=== PATIENT | male | born 1985 | race Caucasian/White ===

== ENCOUNTER → 2023-08-08 | Outpatient (CLI) | payer BC ==
[2023-08-08 14:31] LABS: BASO # 0.1 10^3/uL (0.0-0.2); BASO % 0.7 % (0.0-1.0); EOS # 0.2 10^3/uL (0.0-0.5); EOS % 2.2 % (0.0-3.0); HEMATOCRIT 42.9 % (42.0-52.0); HEMOGLOBIN 15.1 g/dl (13.5-17.5); LYMPH # 2.1 10^3/uL (1.5-5.0); LYMPH % 24.2 % (24.0-44.0); MEAN CORPUSCULAR HEMOGLOBIN 31.9 pg (27.0-33.0); MEAN CORPUSCULAR HGB CONC 35.2 g/dl (32.0-36.5); MEAN CORPUSCULAR VOLUME 90.7 fl (80.0-96.0); NEUTROPHILS # 5.2 10^3/uL (1.5-8.5); NEUTROPHILS % 60.7 % (36.0-66.0); PLATELET COUNT, AUTOMATED 198 10^3/uL (150-450); RED BLOOD COUNT 4.73 10^6/uL (4.30-6.10); WHITE BLOOD COUNT 8.6 10^3/uL (4.0-10.0)
[2023-08-08 14:50] LABS: ERYTHROCYTE SEDIMENTATION RATE 17 mm/hr (0-15)
[2023-08-08 14:57] LABS: URIC ACID 7.8 MG/DL (3.7-9.2)
[2023-08-08 15:00] LABS: ALBUMIN 3.8 G/DL (3.2-5.2); ALKALINE PHOSPHATASE 57 U/L (46-116); ALT/SGPT 21 U/L (7.0-40); AST/SGOT 19 U/L (<34); BILIRUBIN,TOTAL 0.6 MG/DL (0.3-1.2); BLOOD UREA NITROGEN 18 MG/DL (9-23); CALCIUM LEVEL 8.9 MG/DL (8.5-10.1); CARBON DIOXIDE LEVEL 26 MMOL/L (20-31); CHLORIDE LEVEL 106 MMOL/L (98-107); CREATININE FOR GFR 0.83 MG/DL (0.70-1.30); GLOMERULAR FILTRATION RATE > 60.0 (>60); GLUCOSE, FASTING 63 MG/DL (60-100); POTASSIUM SERUM 4.4 MMOL/L (3.5-5.1); SODIUM LEVEL 141 MMOL/L (136-145); TOTAL PROTEIN 7.3 G/DL (5.7-8.2)
[2023-08-08 15:02] LABS: RHEUMATOID FACTOR QUANT < 3.5 IU/ML (<14)
[2023-08-10 17:11] LABS: ANTI DOUBLE STRAND-DNA AB 1 IU/mL (0-9); ANTINUCLEAR ANTIBODIES DIRECT Positive (Negative); RNP ANTIBODIES 1.3 AI (0.0-0.9); SJOGREN'S ANTI SS-A <0.2 AI (0.0-0.9); SJOGREN'S ANTI SS-B <0.2 AI (0.0-0.9); SMITH ANTIBODIES <0.2 AI (0.0-0.9)
== END ==
LOC: M PLALAB 11:57
PROVIDERS: ATTEND Student in an Organized Health Care Education/Training Program
DX: M79.671 Pain in right foot (principal)

== ENCOUNTER → 2023-11-08 | Outpatient (REF) | payer BC ==
[2023-11-09 11:08] LABS: TESTOSTERONE FREE (DIRECT) 8.2 pg/mL (6.8-21.5)
== END ==
LOC: M LAB REF 12:46
PROVIDERS: ATTEND Internal Medicine
DX: R68.82 Decreased libido (principal)

== ENCOUNTER 2024-02-05 13:47 | Emergency (ER) | payer BC ==
[~2024-02-05] VITALS: Ht 180.3 cm; Wt 112.1 kg
[2024-02-05] MEDS ORDERED: BACTDSTA (13:56)
[2024-02-05] MEDS ORDERED: AMPH1CAP16 (13:56)
[2024-02-05] MEDS ORDERED: MUPI2OI (13:56)
[2024-02-05] MEDS ORDERED: VALA500T5 (13:56)
[2024-02-05] MEDS ORDERED: TEST200I14 (13:56)
[2024-02-05] MEDS ORDERED: VANCOMYCIN HCL 1,000 MG, VIAL MATE ADAPTER 1 EACH in NS 250 ML IV SCH ×2 (14:55)
[2024-02-05] MEDS: NS 1,000 ML IV ONE (15:06)
[2024-02-05] MEDS: VANCOMYCIN HCL 1,000 MG, VIAL MATE ADAPTER 1 EACH in D5W 250 ML IV ONE ×2 (15:20→16:25)
[2024-02-05 15:22] LABS: BASO # 0.1 10^3/uL (0.0-0.2); BASO % 0.5 % (0.0-1.0); EOS # 0.5 10^3/uL (0.0-0.5); EOS % 5.1 % (0.0-3.0); HEMATOCRIT 44.4 % (42.0-52.0); HEMOGLOBIN 15.7 g/dl (13.5-17.5); LYMPH # 1.9 10^3/uL (1.5-5.0); LYMPH % 20.8 % (24.0-44.0); MEAN CORPUSCULAR HEMOGLOBIN 32.8 pg (27.0-33.0); MEAN CORPUSCULAR HGB CONC 35.4 g/dl (32.0-36.5); MEAN CORPUSCULAR VOLUME 92.9 fl (80.0-96.0); MONO # 1.3 10^3/uL (0.0-0.8); MONO % 13.6 % (2.0-8.0); NEUTROPHILS # 5.5 10^3/uL (1.5-8.5); NEUTROPHILS % 59.7 % (36.0-66.0); PLATELET COUNT, AUTOMATED 200 10^3/uL (150-450); RED BLOOD COUNT 4.78 10^6/uL (4.30-6.10); WHITE BLOOD COUNT 9.3 10^3/uL (4.0-10.0)
[2024-02-05 15:39] LABS: ALBUMIN 3.4 G/DL (3.2-5.2); ALKALINE PHOSPHATASE 54 U/L (46-116); ALT/SGPT 39 U/L (7.0-40); AST/SGOT 40 U/L (<34); BILIRUBIN,TOTAL 0.6 MG/DL (0.3-1.2); BLOOD UREA NITROGEN 18 MG/DL (9-23); CALCIUM LEVEL 8.9 MG/DL (8.5-10.1); CARBON DIOXIDE LEVEL 24 MMOL/L (20-31); CHLORIDE LEVEL 105 MMOL/L (98-107); CREATININE FOR GFR 0.98 MG/DL (0.70-1.30); GLOMERULAR FILTRATION RATE > 60.0 (>60); GLUCOSE, FASTING 98 MG/DL (60-100); POTASSIUM SERUM 4.2 MMOL/L (3.5-5.1); SODIUM LEVEL 137 MMOL/L (136-145); TOTAL PROTEIN 7.1 G/DL (5.7-8.2)
[2024-02-05] MEDS: IBUPROFEN 800 MG TAB PO ONE (15:59)
[2024-02-05] MEDS ORDERED: AMOX875T PO (17:19)
[2024-02-05] MEDS ORDERED: DOXY100C3 PO (17:19)
[2024-02-05 17:40] VITALS: BP 148/87; TEMP 97.4; O2SAT 99
== END 2024-02-05 17:42 | disposition home or self-care (01) ==
LOC: M ED 13:47
DX: L03.113 Cellulitis of right upper limb (principal); Z79.2 Long term (current) use of antibiotics; Z79.899 Other long term (current) drug therapy
CPT/HCPCS: 80053; 83605; 85025; 87040; 87641; 96365; 96366; 99284; J3370

== ENCOUNTER 2024-03-08 17:47 | Emergency (ER) | payer BC ==
[~2024-03-08] VITALS: Ht 180.3 cm; Wt 116.1 kg
[~2024-03-08 17:47] MED LIST: AMOX875T PO; AMPH1CAP16; BACTDSTA; DOXY100C3 PO; MUPI2OI; TEST200I14; VALA500T5
[2024-03-08 19:31] LABS: BASO # 0.1 10^3/uL (0.0-0.2); BASO % 0.6 % (0.0-1.0); EOS # 0.4 10^3/uL (0.0-0.5); EOS % 4.4 % (0.0-3.0); HEMATOCRIT 39.9 % (42.0-52.0); HEMOGLOBIN 13.7 g/dl (13.5-17.5); LYMPH # 1.6 10^3/uL (1.5-5.0); LYMPH % 19.4 % (24.0-44.0); MEAN CORPUSCULAR HEMOGLOBIN 32.6 pg (27.0-33.0); MEAN CORPUSCULAR HGB CONC 34.3 g/dl (32.0-36.5); MONO # 1.2 10^3/uL (0.0-0.8); MONO % 14.9 % (2.0-8.0); NEUTROPHILS # 4.9 10^3/uL (1.5-8.5); NEUTROPHILS % 60.3 % (36.0-66.0); PLATELET COUNT, AUTOMATED 169 10^3/uL (150-450); WHITE BLOOD COUNT 8.1 10^3/uL (4.0-10.0)
[2024-03-08 19:51] LABS: ERYTHROCYTE SEDIMENTATION RATE 21 mm/hr (0-15)
[2024-03-08] MEDS ORDERED: DOXY-440 PO (20:13)
[2024-03-08] MEDS: cefTRIAXone SOD 1GM VIAL IM ONE (20:13)
[2024-03-08] MEDS: LIDOCAINE 1% SDV 5ML VIAL DILUENT ONE (20:13)
[2024-03-08 20:27] VITALS: BP 127/58; TEMP 98; O2SAT 98
== END 2024-03-08 20:29 | disposition home or self-care (01) ==
LOC: M ED 17:47
DX: L03.114 Cellulitis of left upper limb (principal); F19.20 Other psychoactive substance dependence, uncomplicated; F17.200 Nicotine dependence, unspecified, uncomplicated; Z79.2 Long term (current) use of antibiotics; Z79.899 Other long term (current) drug therapy
CPT/HCPCS: 80047; 83605; 85025; 85652; 86140; 87040; 96372; 99283; J0696

== ENCOUNTER 2024-03-13 18:18 | Day surgery (SDC) | payer BC ==
[~2024-03-13] VITALS: Ht 180.3 cm; Wt 116.1 kg
[~2024-03-13 18:18] MED LIST changes: -AMPH1CAP16; +AMPH1CAP16 PO; +DOXY-440 PO; -TEST200I14; +TEST200I14 INJ
[2024-03-13] MEDS ORDERED: VALA1TAB5 PO (18:25)
[2024-03-13 18:52] LABS: BASO # 0.1 10^3/uL (0.0-0.2); BASO % 0.6 % (0.0-1.0); EOS # 0.3 10^3/uL (0.0-0.5); EOS % 2.4 % (0.0-3.0); HEMATOCRIT 49.9 % (42.0-52.0); HEMOGLOBIN 17.1 g/dl (13.5-17.5); LYMPH # 2.8 10^3/uL (1.5-5.0); LYMPH % 25.2 % (24.0-44.0); MEAN CORPUSCULAR HEMOGLOBIN 32.8 pg (27.0-33.0); MEAN CORPUSCULAR HGB CONC 34.3 g/dl (32.0-36.5); MEAN CORPUSCULAR VOLUME 95.8 fl (80.0-96.0); MONO # 1.2 10^3/uL (0.0-0.8); MONO % 10.9 % (2.0-8.0); NEUTROPHILS # 6.9 10^3/uL (1.5-8.5); NEUTROPHILS % 60.6 % (36.0-66.0); PLATELET COUNT, AUTOMATED 249 10^3/uL (150-450); RED BLOOD COUNT 5.21 10^6/uL (4.30-6.10); WHITE BLOOD COUNT 11.3 10^3/uL (4.0-10.0)
[2024-03-13] MEDS ORDERED: ISOVUE-370 76% 100ML VIAL As Ordered ONE (19:09)
[2024-03-13] MEDS: MORPHINE 4 MG/ML 1ML VIAL IV ONE (19:10)
[2024-03-13] MEDS: NS 1,000 ML IV ONE (19:10)
[2024-03-13 19:16] LABS: ALBUMIN 4.2 G/DL (3.2-5.2); BILIRUBIN,DIRECT 0.1 MG/DL (<0.4); BILIRUBIN,TOTAL 0.4 MG/DL (0.3-1.2); TOTAL PROTEIN 8.2 G/DL (5.7-8.2)
[2024-03-13] MEDS: HYDROMORPHONE HCL 0.5 MG/ 0.5 ML SYRINGE IV ONE (19:50)
[2024-03-13] MEDS ORDERED: ACETAMINOPHEN 1000MG 100ML IV BAG As Ordered ONE (20:51)
[2024-03-13] MEDS ORDERED: propofoL 200 MG/20 ML VIAL As Ordered ONE (20:51)
[2024-03-13] MEDS ORDERED: fentaNYL 250 MCG/5 ML INJECTION As Ordered ONE (20:51)
[2024-03-13] MEDS ORDERED: ROCURONIUM BROMIDE 50MG/5ML VIAL As Ordered ONE (20:51)
[2024-03-13] MEDS ORDERED: MIDAZOLAM INJ 2MG/2ML VIAL As Ordered ONE (20:51)
[2024-03-13] MEDS ORDERED: ONDANSETRON 4MG 2ML VIAL As Ordered ONE (20:51)
[2024-03-13] MEDS ORDERED: LIDOCAINE 2% 100MG/5ML SDV (FOR ANES.) As Ordered ONE (20:51)
[2024-03-13] MEDS ORDERED: KETOROLAC 60MG 2ML VIAL As Ordered ONE (20:51)
[2024-03-13] MEDS ORDERED: SUCCINYLCHOLINE 100MG/5ML SYRINGE As Ordered ONE (20:51)
[2024-03-13] MEDS ORDERED: SUGAMMADEX SODIUM 500 MG/5 ML VIAL (BRIDION) As Ordered ONE (20:54)
[2024-03-13] MEDS ORDERED: CYCL-707 PO (21:01)
[2024-03-13] MEDS ORDERED: DOXY-440 PO (21:01)
[2024-03-13] MEDS ORDERED: OMEP-173 PO (21:01)
[2024-03-13] MEDS ORDERED: TADA5TAB PO (21:01)
[2024-03-13] MEDS ORDERED: HOME MED LIST COMPLETE! XX SCH (21:05)
[2024-03-13] MEDS ORDERED: ceFAZolin 2 GM/D5W 50 ML IV BAG As Ordered ONE (21:41)
[2024-03-13] MEDS ORDERED: dexmedeTOMIDine (4MCG/ML)200MCG/50ML BTL (PRECEDEX) As Ordered ONE (21:48)
[2024-03-13] MEDS ORDERED: HYDROmorphone HCL 2MG/ML 1ML VIAL As Ordered ONE (22:56)
[2024-03-13] MEDS ORDERED: oxyCODONE 5MG TAB PO PRN (23:40)
[2024-03-13] MEDS ORDERED: LR 1,000 ML IV SCH (23:40)
[2024-03-13] MEDS ORDERED: fentaNYL 100 MCG/2 ML INJECTION IV PRN (23:40)
[2024-03-13] MEDS ORDERED: HYDROMORPHONE HCL 0.5 MG/ 0.5 ML SYRINGE IV PRN (23:40)
[2024-03-13] MEDS ORDERED: MEPERIDINE 25 MG/ML 1ML VIAL IV PRN (23:40)
[2024-03-13] MEDS ORDERED: ONDANSETRON 4MG 2ML VIAL IV PRN ×2 (23:40→23:45)
[2024-03-13] MEDS ORDERED: METOCLOPRAMIDE INJ 10MG/2ML VIAL IV PRN (23:40)
[2024-03-14] VITALS (8 sets, daily range): BP systolic 124–135; BP diastolic 72–92; TEMP 97.5–97.9; O2SAT 94–96
[2024-03-14] MEDS: NORCO, ANEXSIA 5/325MG TABLET (HYDROcodone/ACETAMINOPHEN) PO PRN (00:31)
[2024-03-14] MEDS: KETOROLAC 30 MG/ML 1ML VIAL IV PRN (05:13)
[2024-03-14 05:57] LABS: HEMATOCRIT 45.7 % (42.0-52.0); HEMOGLOBIN 15.9 g/dl (13.5-17.5); MEAN CORPUSCULAR HEMOGLOBIN 33.3 pg (27.0-33.0); MEAN CORPUSCULAR HGB CONC 34.8 g/dl (32.0-36.5); MEAN CORPUSCULAR VOLUME 95.8 fl (80.0-96.0); PLATELET COUNT, AUTOMATED 235 10^3/uL (150-450); RED BLOOD COUNT 4.77 10^6/uL (4.30-6.10); WHITE BLOOD COUNT 11.9 10^3/uL (4.0-10.0)
[2024-03-14 06:27] LABS: BLOOD UREA NITROGEN 19 MG/DL (9-23); CALCIUM LEVEL 9.2 MG/DL (8.5-10.1); CARBON DIOXIDE LEVEL 25 MMOL/L (20-31); CHLORIDE LEVEL 104 MMOL/L (98-107); CREATININE FOR GFR 0.68 MG/DL (0.70-1.30); GLOMERULAR FILTRATION RATE > 60.0 (>60); GLUCOSE, FASTING 115 MG/DL (60-100); POTASSIUM SERUM 5.3 MMOL/L (3.5-5.1); SODIUM LEVEL 137 MMOL/L (136-145)
[2024-03-14] MEDS: PANTOPRAZOLE 40MG TAB (PROTONIX) PO SCH (09:23)
[2024-03-14] MEDS: SENOKOT S TAB PO SCH (09:23)
[2024-03-14] MEDS ORDERED: HYDR-3715 PO (10:42)
== END 2024-03-14 11:27 | disposition home or self-care (01) ==
LOC: M ED 18:18 → M SDC 20:29 → M ED INP 23:43 → UNDOADMIN 23:43 → M MSPAV 03-14 00:15 → M ED INP 03-14 00:15 → M SDC 03-14 11:27 → UNDODISIN 03-14 11:27
PROVIDERS: ATTEND Surgery
DX: K43.0 Incisional hernia with obstruction, without gangrene (principal); K66.0 Peritoneal adhesions (postprocedural) (postinfection); R11.2 Nausea with vomiting, unspecified; F90.9 Attention-deficit hyperactivity disorder, unspecified type; K57.92 Diverticulitis of intestine, part unspecified, without perforation or abscess without bleeding; F99 Mental disorder, not otherwise specified; F15.10 Other stimulant abuse, uncomplicated; Z98.890 Other specified postprocedural states; Z90.49 Acquired absence of other specified parts of digestive tract; F17.200 Nicotine dependence, unspecified, uncomplicated; Z79.2 Long term (current) use of antibiotics
CPT/HCPCS: 36415; 49618; 74021; 74177; 80047; 80048; 80076; 83605; 83690; 85025; 85027; 87040; 93041; 96374; 96375; 99285; J0131; J0330; J0665; J0690; J1100; J1170; J1885; J2250; J2405; J3010; Q9967; S2900

== ENCOUNTER 2024-03-14 21:03 | Emergency (ER) | payer BC ==
[~2024-03-14] VITALS: Ht 180.3 cm; Wt 115.6 kg
[~2024-03-14 21:03] MED LIST changes: +CYCL-707 PO; +HYDR-3715 PO; +OMEP-173 PO; +TADA5TAB PO; +VALA1TAB5 PO
[2024-03-14 21:04] VITALS: BP 154/109; TEMP 98.6; O2SAT 99
== END 2024-03-14 21:52 | disposition left against medical advice (07) ==
LOC: M ED 21:03
DX: Z53.21 Procedure and treatment not carried out due to patient leaving prior to being seen by health care provider (principal)

== ENCOUNTER 2024-03-15 06:44 | Emergency (ER) | payer BC | END 2024-03-15 06:45 | disposition left against medical advice (07) | LOC: M ED 06:44 | DX: Z53.21 Procedure and treatment not carried out due to patient leaving prior to being seen by health care provider (principal) ==

== ENCOUNTER → 2024-03-22 | Outpatient (REF) | payer BC | LOC: M LAB REF 16:39 | PROVIDERS: ATTEND Nurse Practitioner Family | DX: K42.0 Umbilical hernia with obstruction, without gangrene (principal) ==

== ENCOUNTER → 2024-04-29 | Outpatient (REF) | payer BC | LOC: M LAB REF 12:43 | PROVIDERS: ATTEND Internal Medicine | DX: E29.1 Testicular hypofunction (principal) ==

== ENCOUNTER → 2024-09-12 | Outpatient (REF) | payer BC ==
[~2024-09-12] MED LIST changes: -TADA5TAB PO; +TADA5TAB94 PO
== END ==
LOC: M LAB REF 12:51
PROVIDERS: ATTEND Internal Medicine
DX: E29.1 Testicular hypofunction (principal)

== ENCOUNTER → 2024-09-13 | Outpatient (CLI) | payer BC, MEDICAID | LOC: M WUC 12:43 | PROVIDERS: ATTEND Internal Medicine | DX: M54.50 Low back pain, unspecified (principal); W19.XXXA Unspecified fall, initial encounter; Y93.9 Activity, unspecified; Y92.9 Unspecified place or not applicable ==

== ENCOUNTER 2024-11-16 17:03 | Emergency (ER) | payer BC, MEDICAID ==
[~2024-11-16] VITALS: Ht 180.3 cm; Wt 100.8 kg
[2024-11-16] MEDS: KETOROLAC 30 MG/ML 1ML VIAL IV ONE (17:40)
[2024-11-16] MEDS: NS (Normal Saline) 0.9% 1,000 ML IV SCH (17:44)
[2024-11-16] MEDS: propofoL 200 MG/20 ML VIAL IV.PROC PRN (17:58)
[2024-11-16 18:30] VITALS: O2SAT 96
[2024-11-16 18:40] VITALS: BP 122/57
[2024-11-16 18:51] VITALS: TEMP 97.3
== END 2024-11-16 18:52 | disposition home or self-care (01) ==
LOC: M ED 17:03
DX: S43.014A Anterior dislocation of right humerus, initial encounter (principal); Y92.019 Unspecified place in single-family (private) house as the place of occurrence of the external cause; Y93.9 Activity, unspecified; Y99.9 Unspecified external cause status; W01.0XXA Fall on same level from slipping, tripping and stumbling without subsequent striking against object, initial encounter; Z79.899 Other long term (current) drug therapy; Z79.890 Hormone replacement therapy
CPT/HCPCS: 23655; 73020; 73030; 93041; 94760; 96374; 99152; 99285; J1885

== ENCOUNTER 2024-11-17 03:56 | Emergency (ER) | payer BC, MEDICAID ==
[~2024-11-17] VITALS: Ht 180.3 cm; Wt 102.3 kg
[2024-11-17] MEDS: ONDANSETRON 4MG 2ML VIAL IV ONE (04:47)
[2024-11-17] MEDS: HYDROMORPHONE HCL 0.5 MG/ 0.5 ML SYRINGE IV PRN ×2 (04:48→06:28)
[2024-11-17] MEDS ORDERED: NS (Normal Saline) 0.9% 1,000 ML IV SCH (08:00)
[2024-11-17] MEDS ORDERED: propofoL 200 MG/20 ML VIAL IV.PROC PRN (08:00)
[2024-11-17 08:30] VITALS: BP 171/56; O2SAT 95
[2024-11-17 08:45] VITALS: TEMP 98.6
== END 2024-11-17 08:44 | disposition home or self-care (01) ==
LOC: EDBD 03:56 → M ED 03:56
DX: M24.411 Recurrent dislocation, right shoulder (principal); Z79.899 Other long term (current) drug therapy; Z79.890 Hormone replacement therapy
CPT/HCPCS: 73020; 73030; 96374; 96375; 96376; 99284; J1171; J2405

== ENCOUNTER → 2024-11-19 | Outpatient (CLI) | payer BC, MEDICAID | LOC: M SOG 10:27 | PROVIDERS: ATTEND Orthopaedic Surgery | DX: M25.511 Pain in right shoulder (principal) ==

== ENCOUNTER → 2024-11-26 | Outpatient (CLI) | payer BC, MEDICAID | LOC: M SOG 15:08 | PROVIDERS: ATTEND Orthopaedic Surgery | DX: M25.511 Pain in right shoulder (principal) ==

== ENCOUNTER → 2024-11-27 | Outpatient (CLI) | payer BC, MEDICAID | LOC: M PLAIMG 06:44 | PROVIDERS: ATTEND Orthopaedic Surgery | DX: S43.014A Anterior dislocation of right humerus, initial encounter (principal) ==

== ENCOUNTER → 2024-11-28 | Outpatient (CLI) | payer BC, MEDICAID | LOC: M SOG 07:46 | PROVIDERS: ATTEND Orthopaedic Surgery | DX: M25.511 Pain in right shoulder (principal); R93.6 Abnormal findings on diagnostic imaging of limbs ==

== ENCOUNTER 2025-08-03 07:44 | Emergency (ER) | payer BC, MEDICAID ==
[~2025-08-03] VITALS: Ht 177.8 cm; Wt 101.2 kg
[~2025-08-03 07:44] MED LIST changes: +TADA5TAB2 PO; -TADA5TAB94 PO
[2025-08-03] MEDS: predniSONE 20 MG TAB PO ONE (09:16)
[2025-08-03] MEDS: IBUPROFEN 800 MG TAB PO ONE (09:16)
[2025-08-03] MEDS: LIDOCAINE VISCOUS 2% SOLN 15 ML UDC SS ONE (09:17)
[2025-08-03 09:50] VITALS: BP 145/94; TEMP 97.6; O2SAT 98
[2025-08-03] MEDS ORDERED: PRED20TA PO (10:21)
== END 2025-08-03 10:19 | disposition left against medical advice (07) ==
LOC: M ED 07:44
DX: K12.2 Cellulitis and abscess of mouth (principal); J02.9 Acute pharyngitis, unspecified; F90.9 Attention-deficit hyperactivity disorder, unspecified type; F17.290 Nicotine dependence, other tobacco product, uncomplicated; F12.10 Cannabis abuse, uncomplicated; F10.10 Alcohol abuse, uncomplicated; Z79.52 Long term (current) use of systemic steroids; Z79.899 Other long term (current) drug therapy; Z79.890 Hormone replacement therapy
CPT/HCPCS: 87486; 87581; 87633; 87798; 87880; 99284; J7512

== ENCOUNTER → 2025-08-06 | Outpatient (REF) | payer BC, MEDICAID ==
[~2025-08-06] MED LIST changes: +PRED20TA PO
== END ==
LOC: M LAB REF 17:18
PROVIDERS: ATTEND Physician Assistant
DX: J02.9 Acute pharyngitis, unspecified (principal)